=== PATIENT | female | born 1990 | race Caucasian/White ===

== ENCOUNTER 2019-08-17 10:08 | Emergency (ER) | payer OTHER, SELFPAY ==
[2019-08-17 10:11] VITALS: BP 126/81; PULSE 85; RESP 19; TEMP 36.5; O2SAT 100
--- NOTE | 2019-08-17 10:27 | ED.FEVER ---
HPI - Fever General Chief Complaint: Fever Stated Complaint: Fever Time Seen by Provider: 08/17/19 10:16 Source: patient and family (Mother) Mode of arrival: ambulatory Limitations: no limitations History of Present Illness HPI Narrative: The pt is a 29 y/o female who presents to the ED c/o fever onset 3-4 days ago. Pt states that her fever has been at 102 degrees at its highest. Pt notes that she has taken Tylenol and Ibuprofen intermittently. Pt's mother states that the pt took Fidelia-Stehekin as well; she states that the pt took Fidelia-Stehekin and Ibuprofen at 0800. Pt reports myalgia, rhinorrhea, [place], feet swelling, back pain in the kidney area, throat swelling, and loss of appetite. She denies sore throat and N/V/D. Pt states that she has no PMHx or PSHx. Pt notes that she smokes 0.5 PPD. Pt has a past social history of methamphetamine usage. Pt notes that she has a knot in her RUE. MD elicited complaint: fever Onset (ago): day(s) (3-4) Associated symptoms: myalgias, headache, rhinorrhea, back/flank pain (In kidney area) and other ( feet swelling, throat swelling, loss of appetite, knot in RUE) Treatments prior to arrival fever: acetaminophen, ibuprofen and other (Fidelia-Stehekin) Related Data Allergies Allergy/AdvReac Type Severity Reaction Status Date / Time No Known Allergies Allergy Unknown Unverified 08/17/19 10:28 Review of Systems Review of Systems: All systems reviewed & are unremarkable except as noted in HPI and below Constitutional: Constitutional: Reports fever(s) and Reports poor appetite (Loss of appetite) ENT: Reports nasal discharge (Rhinorrhea), Denies sore throat and Reports throat swelling Gastrointestinal: Gastrointestinal: Denies diarrhea, Denies nausea and Denies vomiting Musculoskeletal: Musculoskeletal: Reports back pain (In kidney area), Reports myalgias and Reports other (Feet swelling) Integumentary/Breasts: Skin/Breast: Reports other ( Knot to RUE) Neurologic: Reports headache(s) [facility] Past Medical History Medical History (Updated 08/17/19 @ 10:56 by Carol Lay MD) Healthy adult Surgical History Surgical History (Updated 02/08/20 @ 10:29 by Krish Lowe) No history of previous surgery Social History Social History (Updated 08/17/19 @ 10:29 by Krish Lowe) Smoking packs per day: 0.5 Smoking cigarettes per day: 10.0 Smoking status: Current every day smoker Substance use: current Substance use type: methamphetamine Gender identity (if verbalized by the patient): Female Exam Const: General: cooperative, no acute distress and alert Nutritional Appearance: well nourished Orientation/consciousness: patient oriented x3 Limitations: no limitations HENMT: Mouth: Yes lip normal and Yes moist mucous membranes Resp: Effort & Inspection: normal respiratory effort Auscultation: clear to auscultation bilaterally Cardio: Rate: regular rate Rhythm: regular rhythm Peripheral pulses: dorsalis pedis present bilateral 2+ GI: GI Palp: Yes Soft to palpation and No Tenderness to palpation present (GI) Auscultation: normal bowel sounds Skin: General skin exam: normal color, no erythema (To area of palpably scarred vein on RUE), no fluctuance (To area of palpably scarred vein on RUE) and other (Palpably scarred vein to the right antecubital fossa. 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 Influenza testing negative. Patient inquiring about being tested for blood-borne pathogen's given her IV drug abuse history. Patient does not have any findings to suggest sepsis. She is nontoxic in appearance with normal vital signs. Patient is concerned about possibility of hepa
[2019-08-17 10:35] LABS: Add Urine Microscopic? YES; Amorphous Sediment Urine Few; Appearance Urine Cloudy (Clear); Bacteria Urine Trace /hpf; Bilirubin Urine Negative (Negative); Blood Urine Negative (Negative); Color Urine Yellow (Yellow); Glucose Urine UA Negative (Negative); Ketones Urine Negative (Negative); Leukocyte Esterase Ur 1+ LEU/UL (Negative); Mucus Urine Rare /lpf; Nitrate Urine Positive (Negative); Protein Urine 1+ mg/dL (Negative); Specific Grav Ur 1.015 (1.001-1.035); Squamous Epithelial Cell Urine Many /hpf (Few); Urobilinogen Urine Negative mg/dL (<2.0); WBC Urine 51-75 /hpf
[2019-08-17] MEDS: ACETAMINOPHEN 500 MG TABLET 1000 MG PO (10:43)
== END 2019-08-17 11:11 | disposition home or self-care (01) ==
PROVIDERS: Emergency Provider Emergency Medicine
DX: B34.9 Viral infection, unspecified (principal); N30.00 Acute cystitis without hematuria; F17.210 Nicotine dependence, cigarettes, uncomplicated
CPT/HCPCS: 81001; 87077; 87086; 87088; 87186; 87804; 99283; A9270

== ENCOUNTER 2020-01-15 15:00 | Emergency (ER) | payer OTHER, SELFPAY ==
--- NOTE | ~2020-01-15 | US_ITS ---
EXAMINATION: US pelvic complete w TV DATE: 01/15/2020 16:40 INDICATION: Left pelvic mass seen on prior examination Comparison:No prior studies for comparison. TECHNIQUE: Multiple transabdominal and endovaginal sonographic images of the pelvis performed. FINDINGS: The uterus measures 9.3 x 5.7 x 3.7 cm. The endometrial complex measures 7 mm. The right ovary measures 4 x 2.5 x 2.5 cm and the left ovary measures 4.1 x 2.6 x 2.5 cm. There are small follicles in each ovary. There is no free fluid in the pelvis. There are no abnormal masses seen on either side. IMPRESSION: 1. Normal pelvic ultrasound. Reviewed, dictated and finalized at location A.
[2020-01-15 15:04] VITALS: BP 116/67; PULSE 77; RESP 16; TEMP 36.1; O2SAT 96
[2020-01-15 16:01] LABS: Basophils Absolute Auto 0.1 K/mm3 (0.0-0.1); Basophils Percent Auto 0.7 % (0.2-1.2); Eosinophils Percent Auto 13.6 % (0-4.4); Hematocrit 37.1 % (37.0-47.0); Hemoglobin 12.1 g/dL (12.0-15.0); Immature Granulocyte Absolute 0.01 K/mm3 (0.00-0.031); Immature Granulocyte Percent A 0.1 % (0-0.5); Lymphocytes Absolute Auto 2.34 K/mm3 (0.9-3.2); Lymphocytes Percent Auto 33.6 % (18.3-44.2); Mean Corpuscular HGB Conc 32.6 g/dl (32-36); Mean Corpuscular Hemoglobin 28.5 pg (26-34); Mean Corpuscular Volume 87.3 fl (80-100); Mean Platelet Volume 9.6 fl (7.4-10.4); Monocytes Absolute Auto 0.5 K/mm3 (0.1-0.6); Monocytes Percent Auto 7.7 % (2.6-8.5); Neutrophils Absolute Auto 3.1 K/mm3 (1.3-6.7); Neutrophils Percent Auto 44.3 % (45.5-73.1); Platelet Count Result 210 k/mm3 (150-375); Red Blood Count 4.25 M/mm3 (4.2-5.4); Red Cell Distribution Width 13.2 % (11.5-14.5)
[2020-01-15 16:11] LABS: Prothrombin Time 12.9 Seconds (11.1-14.7)
[2020-01-15 16:12] LABS: Partial Thromboplastin Time 30.4 SECONDS (22.3-36.8)
[2020-01-15 16:13] LABS: Alanine Aminotransferase 16 U/L (4-35); Albumin Level 4.2 g/dL (3.5-5.1); Alkaline Phosphatase 58 U/L (38-126); Aspartate Amino Transferase 24 U/L (14-36); Bilirubin,Total 0.3 mg/dL (0.2-1.3); Blood Urea Nitrogen 17 mg/dL (7-17); Carbon Dioxide 30 mmol/L (22-30); Chloride 103 mmol/L (98-107); Estimated CRCL calculation 73 ml/min; Estimated Glomerular Filt Rate > 60; Glucose 100 mg/dL (65-105); Lipase 36 U/L (23-300); Potassium 4.4 mmol/L (3.4-5.0); Sodium 138 mmol/L (137-145)
[2020-01-15 16:20] LABS: Add Urine Microscopic? YES; Appearance Urine Clear (Clear); Bacteria Urine Trace /hpf; Bilirubin Urine Negative (Negative); Blood Urine 1+ (Negative); Color Urine Yellow (Yellow); Glucose Urine UA Negative (Negative); Ketones Urine Negative (Negative); Leukocyte Esterase Ur Negative LEU/UL (Negative); Mucus Urine Rare /lpf; Nitrate Urine Negative (Negative); Protein Urine Negative (Negative); RBC Urine 0-2 /hpf (0-2); Specific Grav Ur 1.023 (1.001-1.035); Squamous Epithelial Cell Urine Few /hpf (Few); Urobilinogen Urine Negative mg/dL (<2.0); WBC Urine 0-3 /hpf
[2020-01-15 16:31] LABS: Beta HCG Quantitative < 2.39 mIU/ML
--- NOTE | 2020-01-15 17:07 | ED.FEMALEGU ---
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 Reports she was seen at an outside facility 2 weeks ago and had a positive test. Reports she had an ultrasound done that showed a possible mass in her left adnexa. Patient was told to present to the ER but did not until today. Denies fever, abdominal pain, pelvic pain, vomiting, pelvic cramping or vaginal bleeding. Related Data Allergies Allergy/AdvReac Type Severity Reaction Status Date / Time No Known Allergies Allergy Unknown Unverified 01/15/20 15:20 Review of Systems Review of Systems: Narrative: CONSTITUTIONAL: Denies fever GASTROINTESTINAL: Denies abdominal pain, nausea, vomiting GENITOURINARY: Denies dysuria or hematuria. All systems reviewed & are unremarkable except as noted in HPI and below PMFSH Past Medical History Medical History (Updated 08/18/19 @ 00:00 by Judy Terry) Healthy adult Surgical History Surgical History (Updated 01/15/20 @ 17:22 by Ebonie Farooq PA-C) No history of previous surgery Social History Social History (Updated 08/17/19 @ 10:55 by Krish Lowe) Smoking packs per day: 0.5 Smoking cigarettes per day: 10.0 Smoking status: Current every day smoker Substance use: current Substance use type: methamphetamine Gender identity (if verbalized by the patient): Female Exam Narrative: Exam Narrative: GENERAL: Well-appearing, well-nourished, and in no acute distress. HEAD: Normocephalic, atraumatic. EYES: EOMI. CHEST: Clear to auscultation. No respiratory distress. No wheezes rales or rhonchi HEART: Regular rate and rhythm. No murmur heard. Normal peripheral pulses. ABDOMEN: Soft, nontender, nondistended, normal active bowel sounds. EXTREMITIES: Normal range of motion. No edema. SKIN: Warm, dry, no rash. NEURO: No focal deficits. Alert and oriented x3. PSYCH: Normal mood and affect Course Vital Signs Vital signs: Vital Signs Temperature 96.9 F L 01/15/20 15:04 Pulse Rate 77 01/15/20 15:04 Respiratory Rate 16 01/15/20 15:04 Blood Pressure 116/67 01/15/20 15:04 Pulse Oximetry 96 01/15/20 15:04 Temperature 96.9 F L 01/15/20 15:04 Pulse Rate 77 01/15/20 15:04 Respiratory Rate 16 01/15/20 15:04 Blood Pressure 116/67 01/15/20 15:04 Pulse Oximetry 96 01/15/20 15:04 MDM - Female Genitourinary MDM Narrative Medical decision making narrative: Patient presents to the emergency department for abnormal mass seen on an ultrasound done 2 weeks ago. Also reported that she had a positive test at that time. Patient currently has no complaints. She is afebrile and nontoxic-appearing. CBC and metabolic panel are without acute changes. Bedside test is negative. Serum test is negative. UA without evidence of infection. Pelvic ultrasound is normal. Patient was updated on case findings. She was instructed to follow-up with [facility]. Patient is stable and felt appropriate for further outpatient evaluation. She was given warnings to return to the ER Lab Data Attestation: I reviewed the patient's lab results. Result diagrams: 01/15/20 15:55 01/15/20 15:55 Labs: Lab Results 01/15/20 01/15/20 01/15/20 Range/Units 15:55 15:55 15:55 WBC 7.0 (4.5-10.0) K/mm3 RBC 4.25 (4.2-5.4) M/mm3 Hgb 12.1 (12.0-15.0) g/dL Hct 37.1 (37.0-47.0) % MCV 87.3 (80-100) fl MCH 28.5 (26-34) pg MCHC 32.6 (32-36) g/dl RDW 13.2 (11.5-14.5) % Plt Count 210 (150-375) k/mm3 MPV 9.6 (7.4-10.4) fl Immature Gran % (Auto) 0.1 (0-0.5) % Neut % (Auto) 44.3 L (45.5-73.1) % Lymph % (Auto) 33.6
[2020-01-15 18:19] VITALS: BP 114/78; PULSE 82; RESP 16; O2SAT 100
== END 2020-01-15 18:10 | disposition home or self-care (01) ==
PROVIDERS: Physician Assistant; Emergency Provider Family Medicine
DX: O00.90 Unspecified ectopic pregnancy without intrauterine pregnancy (principal); F17.210 Nicotine dependence, cigarettes, uncomplicated
CPT/HCPCS: 36415; 76830; 76856; 80053; 81001; 81025; 83690; 84702; 85025; 85610; 85730; 99284

== ENCOUNTER 2021-08-31 16:35 | Emergency (ER) | payer OTHER, SELFPAY ==
--- NOTE | ~2021-08-31 | XR_ITS ---
EXAMINATION: XR chest 1V portable 08/31/2021 18:29 INDICATION: Low oxygen saturation PROCEDURE: AP portable chest COMPARISON: No prior studies for comparison. FINDINGS: The lungs are clear. The cardiomediastinal silhouette is within normal limits. There are no pleural effusions. There is no pneumothorax suspected. IMPRESSION: 1: NO ACUTE CARDIOPULMONARY DISEASE. 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
[2021-08-31 16:38] VITALS: BP 118/57; PULSE 68; RESP 19; TEMP 36.9; O2SAT 92
[2021-08-31 18:28] LABS: Basophils Percent Auto 0.6 % (0.2-1.2); Eosinophils Absolute Auto 0.4 K/mm3 (0-0.3); Eosinophils Percent Auto 6.1 % (0-4.4); Hematocrit 38.7 % (37.0-47.0); Hemoglobin 12.7 g/dL (12.0-15.0); Immature Granulocyte Absolute 0.01 K/mm3 (0.00-0.031); Immature Granulocyte Percent A 0.1 % (0-0.5); Lymphocytes Absolute Auto 2.03 K/mm3 (0.9-3.2); Lymphocytes Percent Auto 28.7 % (18.3-44.2); Mean Corpuscular HGB Conc 32.8 g/dl (32-36); Mean Corpuscular Hemoglobin 28.5 pg (26-34); Mean Platelet Volume 9.7 fl (7.4-10.4); Monocytes Absolute Auto 0.7 K/mm3 (0.1-0.6); Monocytes Percent Auto 9.2 % (2.6-8.5); Neutrophils Absolute Auto 3.9 K/mm3 (1.3-6.7); Neutrophils Percent Auto 55.3 % (45.5-73.1); Platelet Count Result 274 k/mm3 (150-375); Red Blood Count 4.45 M/mm3 (4.2-5.4); Red Cell Distribution Width 13.1 % (11.5-14.5); White Blood Count 7.1 K/mm3 (4.5-10.0)
[2021-08-31 18:42] LABS: Alanine Aminotransferase 12 U/L (4-35); Alkaline Phosphatase 84 U/L (38-126); Anion Gap 7 mmol/L (8-16); Aspartate Amino Transferase 19 U/L (14-36); Bilirubin,Total 0.1 mg/dL (0.2-1.3); Blood Urea Nitrogen 19 mg/dL (7-17); Calcium 9.8 mg/dL (8.4-10.2); Carbon Dioxide 29 mmol/L (22-30); Chloride 104 mmol/L (98-107); Estimated CRCL calculation 58 ml/min; Estimated Glomerular Filt Rate > 60; Glucose 82 mg/dL (65-110); Potassium 4.1 mmol/L (3.4-5.0); Sodium 140 mmol/L (137-145)
[2021-08-31 18:48] LABS: Add Urine Microscopic? YES; Appearance Urine Clear (Clear); Bacteria Urine Trace /hpf; Bilirubin Urine Negative (Negative); Blood Urine Negative (Negative); Color Urine Yellow (Yellow); Glucose Urine UA Negative (Negative); Ketones Urine Negative (Negative); Leukocyte Esterase Ur 1+ LEU/UL (Negative); Mucus Urine Rare /lpf; Nitrate Urine Negative (Negative); Protein Urine Negative (Negative); Specific Grav Ur 1.012 (1.001-1.035); Squamous Epithelial Cell Urine Many /hpf (Few); Urobilinogen Urine Negative mg/dL (<2.0); WBC Urine 0-3 /hpf
--- NOTE | 2021-08-31 19:20 | ED.SKABFB ---
HPI - Skin/Abscess/Foreign Bdy General Chief complaint: Skin/Abscess/Foreign Body Stated complaint: skin infection Time Seen by Provider: 08/31/21 17:41 Source: patient Mode of arrival: ambulatory Limitations: no limitations History of Present Illness HPI narrative: This is a 31 year old female who presents for evaluation of infected wound. She states she developed an ingrown hair to right neck and she popped it yesterday. She developed swollen lymph nodes in her axilla today. She reports drainage for her left axilla today as well. She has been taking ibuprofen and tylenol intermittent. She is unsure if she has had a fever. She denies chest pain, shortness of breath, nausea, vomiting. She reports history of IV drug use but she reports she has not used in 6 months. Related Data Allergies Allergy/AdvReac Type Severity Reaction Status Date / Time No Known Allergies Allergy Unknown Verified 08/31/21 16:41 Review of Systems Review of Systems: All systems reviewed & are unremarkable except as noted in HPI and below PMFSH Past Medical History Medical History Healthy adult Surgical History Surgical History No history of previous surgery Social History Social History (Updated 08/31/21 @ 19:24 by Deb Rachel MD) Smoking packs per day: 0.5 Smoking cigarettes per day: 10.0 Smoking status: Current every day smoker Substance use: current Substance use type: IV drugs and methamphetamine Gender identity (if verbalized by the patient): Female Exam Const: General: no acute distress and alert Orientation/consciousness: patient oriented x3 HENMT: Head: normocephalic and atraumatic Ears: TM's normal bilaterally General nose exam: Normal external nose present Face and sinus: sinuses nontender and face symmetric Eyes: EOM: EOMs intact bilaterally Neck: Neck: lymphadenopathy Other: right neck- postauricular there was 3 areas of herr crusted ulcerations, no drainage, no surrounding erythema Chest: Chest palpation & inspection: normal inspection of the chest Resp: Effort & Inspection: normal respiratory effort and no retractions Auscultation: clear to auscultation bilaterally Cardio: Rate: regular rate Rhythm: regular rhythm Heart sounds: no murmurs GI: Auscultation: normal bowel sounds Skin: Other: see neck, right axilla with 2 swollen lymph nodes, no erythema; Neuro: General: patient oriented x3, moves all extremities and CN's II-XI intact bilaterally Course Reevaluation(s) Reevaluation #1: PAtient will be started on antibiotics. Date: 08/31/21 Time: 19:26 Vital Signs Vital signs: Vital Signs Temperature 98.4 F 08/31/21 16:38 Pulse Rate 68 08/31/21 16:38 Respiratory Rate 19 08/31/21 16:38 Blood Pressure 118/57 L 08/31/21 16:38 Pulse Oximetry 92 08/31/21 16:38 Temperature 98.4 F 08/31/21 16:38 Pulse Rate 68 08/31/21 16:38 Respiratory Rate 19 08/31/21 16:38 Blood Pressure 118/57 L 08/31/21 16:38 Pulse Oximetry 92 08/31/21 16:38 MDM - Skin/Abscess/Foreign Bdy Medical Records Attestation: I reviewed the patient's medical records. Lab Data Attestation: I reviewed the patient's lab results. Result diagrams: 08/31/21 18:18 08/31/21 18:18 Labs: Lab Results 08/31/21 08/31/21 08/31/21 Range/Units 18:18 18:18 18:18 WBC 7.1 (4.5-10.0) K/mm3 RBC 4.45 (4.2-5.4) M/mm3 Hgb 12.7 (12.0-15.0) g/dL Hct 38.7 (37.0-47.0) % MCV 87.0 (80-100) fl MCH 28.5 (26-34) pg MCHC 32.8 (32-36) g/dl RDW 13.1 (11.5-14.5) % Plt Count 274 (150-375) k/mm3 MPV 9.7 (7.4-10.4) fl Immature Gran % (Auto) 0.1 (0-0.5) % Neut % (Auto) 55.3 (45.5-73.1) % Lymph % (Auto) 28.7 (18.3-44.2) % [place] % (Auto) 9.2 H (2.6-8.5) % Eos % (Auto) 6.1 H (0-4.4) % Baso %
[2021-08-31] MEDS: cefTRIAXone 1 GM VIAL IM (19:29)
[2021-08-31] MEDS: LIDOCAINE HCL 1% LOCAL INJ 20 ML VIAL (19:29)
[2021-08-31] MEDS: KETOROLAC (*BKC) 60 MG/2 ML VIAL (19:35)
== END 2021-08-31 20:32 | disposition home or self-care (01) ==
PROVIDERS: Emergency Provider General Practice
DX: R59.1 Generalized enlarged lymph nodes (principal); L73.9 Follicular disorder, unspecified; L01.00 Impetigo, unspecified
CPT/HCPCS: 36415; 71045; 80053; 81001; 81025; 85025; 96372; 99284; J0696; J1885